=== PATIENT | female | born 1980 | race Caucasian/White ===

== ENCOUNTER 2025-03-05 20:44 | Emergency (ER) | payer OTHER, SELFPAY ==
[2025-03-05 21:02] VITALS: BP 135/81; PULSE 97; RESP 18; TEMP 36.4; O2SAT 98; BMI 47.8
[2025-03-05 22:58] VITALS: PULSE 101; O2SAT 96
[2025-03-05 23:00] VITALS: PULSE 97; O2SAT 98
[2025-03-05 23:04] VITALS: BP 133/93; PULSE 90; O2SAT 97
[2025-03-05 23:30] VITALS: PULSE 92; O2SAT 97
[2025-03-05 23:31] VITALS: BP 176/97; PULSE 89; O2SAT 97
--- NOTE | 2025-03-05 23:43 | ED_ITS ---
HPI - Female Genitourinary General Chief complaint: Vaginal Bleeding Stated complaint: heavy vag bleeding, back pain, tired Time Seen by Provider: 03/05/25 23:43 Source: patient Mode of arrival: Ambulatory History of Present Illness HPI Narrative: 44-year-old female history of diabetes presents with heavy menstrual bleeding today after going through 1 pad an hour for 3 hours. She is not on any control and this happen once before last August but not to this severity. Patient recently had a pelvic ultrasound ordered that did not show any fibroids and the endometrial thickness was 12 mm. Other than what is stated 14 point rev iew of system is negative Related Data Home Medications Medication Instructions Recorded Confirmed mecobalamin (vitamin B12) 1,000 1,000 mcg PO DAILY 04/22/20 06/30/20 mcg chewable tablet (B12 Active) Previous Rx's Medication Instructions Recorded mupirocin 2 % topical ointment 1 applic topical BID #30 grams 06/30/20 medroxyprogesterone 10 mg tablet 10 mg PO DAILY #7 tabs 03/06/25 (Provera) Allergies Allergy/AdvReac Type Severity Reaction Status Date / Time Penicillins AdvReac Intermediate Hives Verified 06/30/20 16:49 Review of Systems Review of Systems ROS Unobtainable: All systems reviewed & are unremarkable except as noted in HPI and below Patient History Family History Family/Other Loud snoring Heart disease Father Insomnia Diabetes mellitus Heart disease Mother Loud snoring Heart disease Exam Narrative Exam Narrative: GENERAL: [44] year old patient appears stated age. Well-developed patient, in mild distress. HEAD: Atraumatic. Normocephalic. GASTROINTESTINAL: Abdomen soft, non-tender, nondistended. EXTREMITIES: No edema or joint tenderness. BACK: Nontender without deformity or crepitance. No flank tenderness. Exam: Cervica os slight opening, pool of vaginal blood in the canal - 2 scopettes used no cmt on bimanual exam NEURO: AOx3. SKIN: No rash or erythema of visible areas Initial Vital Signs Initial Vital Signs: Vital Signs Temperature 97.5 F L 03/05/25 21:02 Pulse Rate 97 H 03/05/25 21:02 Respiratory Rate 18 03/05/25 21:02 Blood Pressure 135/81 03/05/25 21:02 Pulse Oximetry 98 03/05/25 21:02 Oxygen Delivery Method Room Air 03/05/25 21:02 Course Vital Signs Vital signs: Vital Signs - 8 hr 03/05/25 21:02 Temperature 97.5 F L Pulse Rate 97 H Respiratory Rate 18 Blood Pressure 135/81 Pulse Oximetry 98 Oxygen Delivery Method Room Air MDM - Female Genitourinary MDM Narrative Medical decision making narrative: Hemodynamically stable pelvic exam completed. We will start on Provera 10 mg once daily for a week and outpatient follow up with PCP and or OBGYN. Vaginal ultrasound that patient showed me on her smart phone showed no fibroids endometrial thickness of 12 mm the right ovary was seen but the left 1 was not. Differential diagnosis includes dysfunctional uterine bleed, perimenopause, anemia. Discharge Plan Departure Patient Disposition: Home Clinical Impression: Dysfunctional uterine bleeding Instructions: DI for Abnormal Uterine Bleeding Activity Restrictions/Additional Instructions: Return with new or worsening symptoms. Follow up with OBGYN and or and/or PCP in 1-2 weeks. Take your medicines as directed Prescriptions: New medroxyprogesterone [Provera] 10 mg tablet 10 mg PO DAILY Qty: 7 0RF No Action mupirocin 2 % ointment 1 applic TOP BID Qty: 30 0RF B12 Active 1,000 mcg tablet,chewable 1,000 mcg PO DAILY Referrals: Kelly Meyer [Primary Care Provider] - Stand Alone Forms: Patient Portal/API/Survey
[2025-03-06] MEDS: MEDROXYPROGESTERONE ACETATE 10 MG TABLET PO (00:29)
[2025-03-06 00:31] VITALS: BP 137/83; PULSE 88; O2SAT 97
== END 2025-03-06 00:44 | disposition home or self-care (01) ==
PROVIDERS: Emergency Provider Family Medicine; PCP Family Medicine
DX: N93.8 Other specified abnormal uterine and vaginal bleeding (principal)
CPT/HCPCS: 99283